=== PATIENT | female | born 1975 ===

== ENCOUNTER 2024-09-26 11:30 | Inpatient (IN) | payer OTHER ==
[~2024-09-26] VITALS: Ht 177.8 cm; Wt 81.2 kg
[2024-09-26] MEDS ORDERED: FERRLECIT62.5 MG/2 IV (13:48)
[2024-09-26] MEDS ORDERED: VITABEX IRON C1 EACH PO (13:49)
[2024-09-26] MEDS ORDERED: CRYSELLE-28 TA1 EACH PO (13:49)
[2024-09-26 14:01] LABS: INR 1.03; PARTIAL THROMBOPLASTIN TIME 25.6 SECONDS (22.0-34.0)
[2024-09-26 14:05] LABS: PROTHROMBIN TIME 11.2 SECONDS (9.0-11.5)
[2024-09-26 15:14] LABS: RH POSITIVE
[2024-10-07] MEDS ORDERED: CEFAZOLIN SODIUM 1,000 MG VIAL IV ONE (17:15)
[2024-10-07] MEDS ORDERED: POVIDONE-IODINE 118 ML BOTT TOP ONE (17:30)
[2024-10-07] MEDS ORDERED: MORPHINE SULFATE 4 MG/ML VIAL IV PRN (18:30)
[2024-10-07] MEDS ORDERED: CEFAZOLIN SODIUM 1,000 MG VIAL IV SCH (18:30)
[2024-10-07] MEDS ORDERED: ONDANSETRON HCL 2 MG/ML VIAL IV PRN (18:30)
[2024-10-07] MEDS ORDERED: RINGERS SOLUTION,LACTATED 1,000 ML IV SCH (18:30)
[2024-10-07] MEDS ORDERED: MORPHINE SULFATE 4 MG/ML VIAL IV ONE ×3 (18:45→19:30)
[2024-10-07 21:49] VITALS: BP 137/83
[2024-10-07 21:53] VITALS: BP 137/83
[2024-10-07 22:06] LABS: HEMATOCRIT 30.3 % (36.0-45.00); MEAN CELL VOLUME 85.2 fL (80.00-100.00); MEAN CORPUSCULAR HEMOGLOBIN 28.2 pg (27.00-32.0); MEAN CORPUSCULAR HGB CONC 33.1 g/dl (32.0-36.0); PLATELET COUNT 398 K/uL (150-450); RED BLOOD COUNT 3.56 M/uL (4.00-6.00); RED CELL DISTRIBUTION WIDTH 18.9 % (11.5-14.5)
[2024-10-08] VITALS: BP 122/84; BP 94/57
[2024-10-08] MEDS ORDERED: IBUprofen 800 MG TABLET PO PRN (07:15)
[2024-10-08] MEDS ORDERED: GABAPENTIN 300 MG CAPSULE PO PRN (07:15)
[2024-10-08] MEDS ORDERED: HYOSCYAMINE SULFATE 0.125 MG TAB.SUBL SL SCH (08:00)
[2024-10-08 08:07] VITALS: BP 160/90
[2024-10-08] MEDS ORDERED: ENALAPRILAT DIHYDRATE 1.25 MG/ML VIAL IV PRN (08:15)
[2024-10-08] MEDS ORDERED: SOD FERRIC GLUC COMPLX/SUCROSE 62.5 MG/5 ML AMPUL IV SCH (09:00)
[2024-10-08] MEDS ORDERED: PANTOPRAZOLE SODIUM 40 MG/VIAL VIAL IV SCH (09:00)
[2024-10-08] MEDS ORDERED: ENOXAPARIN SODIUM 40 MG/0.4 ML SYRINGE SUBCUTANEO SCH (09:00)
[2024-10-08 11:20] LABS: HEMATOCRIT 31.9 % (36.0-45.00); HEMOGLOBIN 10.6 g/dL (12.0-15.00); MEAN CELL VOLUME 84.3 fL (80.00-100.00); MEAN CORPUSCULAR HEMOGLOBIN 27.9 pg (27.00-32.0); MEAN CORPUSCULAR HGB CONC 33.1 g/dl (32.0-36.0); PLATELET COUNT 443 K/uL (150-450); RED BLOOD COUNT 3.79 M/uL (4.00-6.00); RED CELL DISTRIBUTION WIDTH 18.7 % (11.5-14.5)
[2024-10-08 16:07] VITALS: BP 150/70
[2024-10-09 03:04] VITALS: BP 145/83
[2024-10-09] MEDS ORDERED: HYOSCYAMINE0.125 M1 SL (07:28)
[2024-10-09] MEDS ORDERED: GABAPENTIN300 MG PO (07:29)
[2024-10-09] MEDS ORDERED: IBUPROFEN800 MG PO (07:29)
[2024-10-09 08:08] VITALS: BP 125/58
== END 2024-10-09 12:42 | disposition home or self-care (01) | DRG 743 ==
LOC: ADM 11:30 → CIR.AMB 10-07 08:45 → O/R 10-07 08:56 → EDBD 10-07 11:30 → EDSTATUS 10-07 11:30 → SURH 10-07 11:30 → CIR.AMB 10-07 11:30 → OB/GYN 10-07 18:53
PROVIDERS: ADMIT Obstetrics & Gynecology Gynecology; ATTEND Obstetrics & Gynecology Gynecology
PROC: 0UT74ZZ Resection of Bilateral Fallopian Tubes, Percutaneous Endoscopic Approach (ICD-10-PCS; 2024-10-07)
PROC: 0UT04ZZ Resection of Right Ovary, Percutaneous Endoscopic Approach (ICD-10-PCS; 2024-10-07)
PROC: 0UT94ZZ Resection of Uterus, Percutaneous Endoscopic Approach (ICD-10-PCS; principal; 2024-10-07 08:45)
DX: D25.0 Submucous leiomyoma of uterus (principal); D25.1 Intramural leiomyoma of uterus; N92.1 Excessive and frequent menstruation with irregular cycle; N80.03 Adenomyosis of the uterus; D27.0 Benign neoplasm of right ovary; Z20.822 Contact with and (suspected) exposure to COVID-19